=== PATIENT | female | born 1965 | race African-American/Black ===

== ENCOUNTER 2020-03-15 06:16 | Inpatient (IN) | payer OTHER ==
[~2020-03-15] VITALS: Ht 172.7 cm; Wt 67.6 kg
[2020-03-15] VITALS (27 sets, daily range): BP systolic 79–105; BP diastolic 54–82
[~2020-03-15 06:16] MED LIST: ETOMIDATE 2MG/ML 10ML VIAL IV ONE; SODIUM CHLORIDE 0.9% 10ML VIAL ONE; VECURONIUM BROMIDE 10 MG/VIAL IV ONE
[2020-03-15] MEDS ORDERED: IPRATROPIUM BROMIDE (0.02%) 0.5MG/2.5ML NEB HHN STA (06:54)
[2020-03-15] MEDS ORDERED: PROPOFOL 10MG/ML 100ML 100 ML IV STA (06:54)
[2020-03-15] MEDS ORDERED: ALBUTEROL (0.083%) 2.5MG/3ML NEB HHN STA (06:54)
[2020-03-15] MEDS ORDERED: METHYLPREDNISOLONE SOD SUCC 125 MG/2 ML VIAL IV ONE (07:00)
[2020-03-15] MEDS ORDERED: PIPERACILLIN/TAZ 3.375G PREMIX 50 ML IV ONE (07:00)
[2020-03-15] MEDS ORDERED: SODIUM CHLORIDE 0.9% 1000ML BAG (SEPSIS BOLUS) IV ONE (07:00)
[2020-03-15] MEDS ORDERED: VANCOMYCIN 1 G PREMIX 200 ML IV ONE (07:00)
[2020-03-15 07:21] LABS: CLARITY URINE CLOUDY (CLEAR); COLOR URINE YELLOW (YELLOW); KETONES URINE NEGATIVE (NEGATIVE); LEUKOCYTE ESTERASE URINE NEGATIVE (NEGATIVE); NITRITE URINE NEGATIVE (NEGATIVE); OCCULT BLOOD URINE 2+ (NEGATIVE); PROTEIN URINE 4+ (NEGATIVE)
[2020-03-15 07:29] LABS: BG DEOXYHEMOGLOBIN 2.8 % (0.0-5.0); BG FRACTION INSPIRED OXYGEN 100; BG METHEMOGLOBIN 0.3 % (0.0-1.5); BG OXYGEN SATURATION 97.2 % (92.0-98.5); BG OXYHEMOGLOBIN 96.9 % (94.0-97.0); BG PCO2 56.7 mmHg (35.0-45.0); BG PH 7.244 (7.350-7.450); BG PO2 106.3 mmHg (75.0-100.0); BG SAMPLE SITE RIGHT RADIAL; BG TOTAL HEMOGLOBIN 12.4 g/dL (12.0-18.0); BG TOTAL RESPIRATORY RATE 16 b/min; BG VENT MODE VENT - AC
[2020-03-15 08:00] LABS: BASOPHILS % 0.6 % (0.0-2.0); EOSINOPHILS % 2.2 % (0.0-5.0); HEMATOCRIT. 38.5 % (36.0-48.0); HEMOGLOBIN. 11.8 g/dL (12.0-16.0); LYMPHOCYTES % 41.9 % (20.0-50.0); MEAN CORPUSCULAR HEMOGLOBIN 25.9 pg (28.0-32.0); MEAN CORPUSCULAR VOLUME 84.1 fL (81.0-99.0); MEAN PLATELET VOLUME 10.6 fl (7.4-10.4); MONOCYTES % 11.3 % (2.0-8.0); PLATELET 258 x1000/uL (130-400); RED BLOOD CELL COUNT 4.57 mill/uL (4.2-5.4); RED CELL DISTRIBUTION WIDTH 17.6 % (11.6-14.6)
[2020-03-15 08:04] LABS: CHLORIDE 103 mEq/L (98-107)
[2020-03-15 08:10] LABS: INR 1.1; PARTIAL THROMBOPLASTIN TIME 28.5 sec (23.4-31.0); PROTHROMBIN TIME 11.2 sec (9.6-11.0)
[2020-03-15] MEDS: IPRATROPIUM/ALBUTEROL 0.5-3(2.5)MG/3ML NEB HHN SCH ×2 (08:29→20:35)
[2020-03-15] MEDS ORDERED: DEXTROSE 50% WATER 50ML SYRINGE IV PRN (16:00)
[2020-03-15] MEDS ORDERED: MAGNESIUM/ALUMINUM HYDROXIDE/SIMETHICONE 30ML UDC PO PRN (16:00)
[2020-03-15] MEDS ORDERED: IPRATROPIUM/ALBUTEROL 0.5-3(2.5)MG/3ML NEB NEB PRN (16:00)
[2020-03-15] MEDS ORDERED: GUAIFENESIN 200MG/10ML SUGAR FREE UDC PO PRN (16:00)
[2020-03-15] MEDS ORDERED: ACETAMINOPHEN 325MG TABLET PO PRN (16:00)
[2020-03-15] MEDS ORDERED: DOCUSATE SODIUM 100MG CAPSULE PO PRN (16:00)
[2020-03-15] MEDS ORDERED: NA PHOS,M-B/NA PHOS,DI-BA ENEMA 118ML PR PRN (16:00)
[2020-03-15] MEDS ORDERED: CLONIDINE 0.1MG TABLET PO PRN (16:00)
[2020-03-15] MEDS ORDERED: ACETAMINOPHEN 650MG SUPP PR PRN (16:00)
[2020-03-15] MEDS ORDERED: LORAZEPAM 0.5MG TABLET PO PRN (16:00)
[2020-03-15] MEDS ORDERED: DIPHENHYDRAMINE 50MG/ML VIAL IV PRN (16:00)
[2020-03-15] MEDS ORDERED: ONDANSETRON HCL 4MG/2ML INJ IV PRN (16:00)
[2020-03-15] MEDS: PROPOFOL 10MG/ML 100ML 100 ML IV PRN ×3 (16:02→23:08)
[2020-03-15] MEDS: INSULIN LISPRO 100 UNITS/ML SUBCUT SCH ×2 (17:00→21:00)
[2020-03-15 17:03] LABS: BG BASE EXCESS -2.1 mmol/L (-2.0-2.0); BG CARBOXYHEMOGLOBIN 0.3 % (0.5-1.5); BG DEOXYHEMOGLOBIN 1.2 % (0.0-5.0); BG FRACTION INSPIRED OXYGEN 100; BG HCO3 ACT 23.5 mmol/L (22.0-26.0); BG METHEMOGLOBIN 0.5 % (0.0-1.5); BG OXYGEN SATURATION 98.8 % (92.0-98.5); BG PCO2 43.5 mmHg (35.0-45.0); BG PH 7.351 (7.350-7.450); BG SAMPLE SITE RIGHT RADIAL; BG TOTAL HEMOGLOBIN 12.7 g/dL (12.0-18.0); BG TOTAL RESPIRATORY RATE 16 b/min; BG VENT MODE VENT - AC
[2020-03-15] MEDS: BLOOD SUGAR DIAGNOSTIC STRIP TEST SCH ×2 (17:16→20:09)
[2020-03-15] MEDS: DEXT 5%/0.45% NACL KCL 20MEQ/L 1,000 ML IV SCH (17:57)
[2020-03-15] MEDS: PIPERACILLIN/TAZOBACTAM 3.375 G in DEXT 5% WATER 100 ML IV SCH ×2 (17:57→23:05)
[2020-03-15] MEDS: METHYLPREDNISOLONE SOD SUCC 40 MG/ML VIAL IV SCH (17:57)
[2020-03-15] MEDS ORDERED: VANCOMYCIN 750 MG PREMIX 150 ML IV SCH (20:00)
[2020-03-15] MEDS ORDERED: IOHEXOL-350 100 ML BOTTLE ONE (23:05)
[2020-03-16] VITALS (91 sets, daily range): BP systolic 75–182; BP diastolic 5–96
[2020-03-16 00:28] LABS: CREATINE KINASE MB FRACTION 11.5 ng/mL (0.5-3.6)
[2020-03-16] MEDS: METHYLPREDNISOLONE SOD SUCC 40 MG/ML VIAL IV SCH ×4 (00:43→23:39)
[2020-03-16] MEDS: NOREPINEPHRINE 8 MG in DEXT 5% WATER 242 ML IV PRN ×2 (00:44→15:26)
[2020-03-16] MEDS: IPRATROPIUM/ALBUTEROL 0.5-3(2.5)MG/3ML NEB HHN SCH ×4 (01:56→21:08)
[2020-03-16] MEDS: PROPOFOL 10MG/ML 100ML 100 ML IV PRN ×4 (04:37→21:29)
[2020-03-16] MEDS: PIPERACILLIN/TAZOBACTAM 3.375 G in DEXT 5% WATER 100 ML IV SCH ×4 (05:05→23:19)
[2020-03-16 05:48] LABS: HEMATOCRIT. 40.4 % (36.0-48.0); HEMOGLOBIN. 12.8 g/dL (12.0-16.0); MEAN CORPUSCULAR HEMOGLOBIN 25.4 pg (28.0-32.0); MEAN PLATELET VOLUME 10.4 fl (7.4-10.4); PLATELET 250 x1000/uL (130-400); RED BLOOD CELL COUNT 5.05 mill/uL (4.2-5.4); RED CELL DISTRIBUTION WIDTH 17.2 % (11.6-14.6)
[2020-03-16 05:50] LABS: CHLORIDE 105 mEq/L (98-107)
[2020-03-16 06:01] LABS: CREATINE KINASE 204 IU/L (26-192); LDL CHOLESTEROL 63 mg/dL (5-100); T4 FREE 1.53 ng/dL (0.76-1.46)
[2020-03-16 06:02] LABS: HDL CHOLESTEROL 72 mg/dL (40-59)
[2020-03-16 06:09] LABS: CREATINE KINASE MB FRACTION 5.2 ng/mL (0.5-3.6)
[2020-03-16] MEDS: BLOOD SUGAR DIAGNOSTIC STRIP TEST SCH ×4 (06:31→20:29)
[2020-03-16] MEDS: INSULIN LISPRO 100 UNITS/ML SUBCUT SCH ×4 (06:32→20:30)
[2020-03-16] MEDS ORDERED: ASPIRIN 325MG EC TABLET PO SCH (09:00)
[2020-03-16] MEDS: DEXT 5%/0.45% NACL KCL 20MEQ/L 1,000 ML IV SCH ×2 (09:03→20:31)
[2020-03-16] MEDS: FAMOTIDINE 20MG/2ML VIAL IV SCH (09:03)
[2020-03-16] MEDS: VANCOMYCIN 1 G PREMIX 200 ML IV SCH ×2 (10:18→21:28)
[2020-03-16 11:25] LABS: BG BASE EXCESS 1.1 mmol/L (-2.0-2.0); BG CARBOXYHEMOGLOBIN 0.1 % (0.5-1.5); BG DEOXYHEMOGLOBIN 4.3 % (0.0-5.0); BG FRACTION INSPIRED OXYGEN 50; BG HCO3 ACT 25.5 mmol/L (22.0-26.0); BG METHEMOGLOBIN 0.3 % (0.0-1.5); BG OXYGEN SATURATION 95.7 % (92.0-98.5); BG OXYHEMOGLOBIN 95.3 % (94.0-97.0); BG PCO2 39.6 mmHg (35.0-45.0); BG PH 7.426 (7.350-7.450); BG SAMPLE SITE RIGHT RADIAL; BG TOTAL HEMOGLOBIN 13.4 g/dL (12.0-18.0); BG TOTAL RESPIRATORY RATE 16 b/min; BG VENT MODE VENT - AC
[2020-03-16 11:47] LABS: PLATELET ESTIMATE NORMAL
[2020-03-16] MEDS: ENOXAPARIN 60MG/0.6ML SYR SUBCUT SCH ×2 (12:06→20:30)
[2020-03-16] MEDS ORDERED: CLOPIDOGREL 75MG TABLET PO SCH (13:30)
[2020-03-16 21:33] LABS: *AMPHETAMINES SCREEN URINE NEGATIVE (NEGATIVE); *BARBITURATES SCREEN URINE NEGATIVE (NEGATIVE); *BENZODIAZEPINES SCREEN URINE NEGATIVE (NEGATIVE); *COCAINE SCREEN URINE NEGATIVE (NEGATIVE); CANNABINOID URINE SCREEN NEGATIVE (NEGATIVE); METHADONE URINE SCREEN NEGATIVE (NEGATIVE); OPIATES URINE SCREEN PRESUMTIVE POSITIVE (NEGATIVE); PHENCYCLIDINE URINE SCREEN NEGATIVE (NEGATIVE)
[2020-03-16] MEDS ORDERED: LORAZEPAM 2MG/ML CPJ IV PRN (21:45)
[2020-03-17] VITALS (70 sets, daily range): BP systolic 70–147; BP diastolic 26–102
[2020-03-17] MEDS ORDERED: IOHEXOL-300 100 ML BOTTLE ONE (00:38)
[2020-03-17] MEDS: PROPOFOL 10MG/ML 100ML 100 ML IV PRN ×4 (00:50→23:29)
[2020-03-17] MEDS: IPRATROPIUM/ALBUTEROL 0.5-3(2.5)MG/3ML NEB HHN SCH ×5 (02:10→20:33)
[2020-03-17] MEDS: PIPERACILLIN/TAZOBACTAM 3.375 G in DEXT 5% WATER 100 ML IV SCH ×4 (04:09→22:04)
[2020-03-17 05:44] LABS: HEMATOCRIT. 35.8 % (36.0-48.0); HEMOGLOBIN. 11.3 g/dL (12.0-16.0); MEAN CORPUSCULAR VOLUME 79.1 fL (81.0-99.0); MEAN PLATELET VOLUME 10.1 fl (7.4-10.4); PLATELET 219 x1000/uL (130-400); RED BLOOD CELL COUNT 4.53 mill/uL (4.2-5.4); RED CELL DISTRIBUTION WIDTH 17.2 % (11.6-14.6)
[2020-03-17 05:51] LABS: CHLORIDE 111 mEq/L (98-107)
[2020-03-17 07:54] LABS: PLATELET ESTIMATE NORMAL
[2020-03-17 07:58] LABS: BG DEOXYHEMOGLOBIN 1.5 % (0.0-5.0); BG HCO3 ACT 23.2 mmol/L (22.0-26.0); BG METHEMOGLOBIN 0.3 % (0.0-1.5); BG OXYGEN SATURATION 98.5 % (92.0-98.5); BG OXYHEMOGLOBIN 98.2 % (94.0-97.0); BG PCO2 33.5 mmHg (35.0-45.0); BG PH 7.459 (7.350-7.450); BG PO2 124.9 mmHg (75.0-100.0); BG SAMPLE SITE RIGHT RADIAL; BG TOTAL HEMOGLOBIN 12.6 g/dL (12.0-18.0); BG VENT MODE VENT - AC
[2020-03-17] MEDS: INSULIN LISPRO 100 UNITS/ML SUBCUT SCH ×5 (08:20→21:00)
[2020-03-17] MEDS: BLOOD SUGAR DIAGNOSTIC STRIP TEST SCH ×4 (08:28→21:48)
[2020-03-17] MEDS ORDERED: KCL 10MEQ/50ML PREMIX 50 ML IV SCH (09:00)
[2020-03-17] MEDS: DEXT 5%/0.45% NACL KCL 20MEQ/L 1,000 ML IV SCH ×2 (09:00→21:33)
[2020-03-17] MEDS: METHYLPREDNISOLONE SOD SUCC 40 MG/ML VIAL IV SCH ×2 (09:39→21:32)
[2020-03-17] MEDS: CLOPIDOGREL 75MG TABLET PO SCH (09:39)
[2020-03-17] MEDS: FAMOTIDINE 20MG/2ML VIAL IV SCH (09:39)
[2020-03-17] MEDS: ENOXAPARIN 60MG/0.6ML SYR SUBCUT SCH ×2 (09:40→21:33)
[2020-03-17] MEDS: VANCOMYCIN 1 G PREMIX 200 ML IV SCH (09:52)
[2020-03-17] MEDS ORDERED: POTASSIUM CHLORIDE INJ 30 MEQ in DEXT 5% WATER 250 ML IV SCH (10:00)
[2020-03-17 13:21] LABS: BG BASE EXCESS -0.5 mmol/L (-2.0-2.0); BG CARBOXYHEMOGLOBIN 0.3 % (0.5-1.5); BG DEOXYHEMOGLOBIN 6.5 % (0.0-5.0); BG FRACTION INSPIRED OXYGEN 40; BG HCO3 ACT 23.8 mmol/L (22.0-26.0); BG METHEMOGLOBIN 0.4 % (0.0-1.5); BG OXYGEN SATURATION 93.5 % (92.0-98.5); BG OXYHEMOGLOBIN 92.8 % (94.0-97.0); BG PCO2 38.3 mmHg (35.0-45.0); BG PH 7.412 (7.350-7.450); BG SAMPLE SITE RIGHT RADIAL; BG TOTAL HEMOGLOBIN 13.2 g/dL (12.0-18.0); BG VENT MODE VENT - CPAP
[2020-03-17] MEDS ORDERED: LORAZEPAM 2MG/ML CPJ IV PRN (17:45)
[2020-03-17] MEDS ORDERED: PROPOFOL 10MG/ML 100ML 100 ML IV PRN (18:07)
[2020-03-17] MEDS: VANCOMYCIN 750 MG PREMIX 150 ML IV SCH (18:55)
[2020-03-18] VITALS (94 sets, daily range): BP systolic 107–187; BP diastolic 27–104
[2020-03-18] MEDS: VANCOMYCIN 750 MG PREMIX 150 ML IV SCH ×3 (02:24→17:58)
[2020-03-18] MEDS: IPRATROPIUM/ALBUTEROL 0.5-3(2.5)MG/3ML NEB HHN SCH ×4 (02:37→20:33)
[2020-03-18] MEDS: ACETYLCYSTEINE 100MG/ML 10% VIAL 4ML INH SCH ×3 (02:37→14:22)
[2020-03-18] MEDS: PIPERACILLIN/TAZOBACTAM 3.375 G in DEXT 5% WATER 100 ML IV SCH ×4 (06:16→23:49)
[2020-03-18 06:50] LABS: HEMATOCRIT 34.3 % (36.0-48.0); MEAN CORPUSCULAR HEMOGLOBIN 25.1 pg (28.0-32.0); MEAN CORPUSCULAR VOLUME 78.3 fL (81.0-99.0); PLATELET 179 x1000/uL (130-400); RED BLOOD CELL COUNT 4.38 mill/uL (4.2-5.4); RED CELL DISTRIBUTION WIDTH 17.9 % (11.6-14.6)
[2020-03-18 07:04] LABS: CHLORIDE 114 mEq/L (98-107)
[2020-03-18] MEDS: PROPOFOL 10MG/ML 100ML 100 ML IV PRN (07:08)
[2020-03-18 07:12] LABS: TOTAL IRON BINDING CAPACITY 236 ug/dL (250-450)
[2020-03-18 07:26] LABS: VITAMIN B12 SERUM 962 pg/mL (211-911)
[2020-03-18] MEDS: BLOOD SUGAR DIAGNOSTIC STRIP TEST SCH ×4 (07:50→21:00)
[2020-03-18] MEDS: INSULIN LISPRO 100 UNITS/ML SUBCUT SCH ×4 (08:20→21:00)
[2020-03-18] MEDS: FAMOTIDINE 20MG/2ML VIAL IV SCH (08:51)
[2020-03-18] MEDS: METHYLPREDNISOLONE SOD SUCC 40 MG/ML VIAL IV SCH ×2 (08:51→21:56)
[2020-03-18] MEDS: CLOPIDOGREL 75MG TABLET PO SCH (08:51)
[2020-03-18] MEDS: ENOXAPARIN 60MG/0.6ML SYR SUBCUT SCH ×3 (08:52→21:56)
[2020-03-18] MEDS ORDERED: POTASSIUM CHLORIDE 20MEQ TABLET SR PO SCH (10:15)
[2020-03-18 10:34] LABS: BG BASE EXCESS -0.5 mmol/L (-2.0-2.0); BG CARBOXYHEMOGLOBIN 0.3 % (0.5-1.5); BG FRACTION INSPIRED OXYGEN 40; BG HCO3 ACT 24.2 mmol/L (22.0-26.0); BG METHEMOGLOBIN 0.4 % (0.0-1.5); BG OXYHEMOGLOBIN 98.3 % (94.0-97.0); BG PO2 199.5 mmHg (75.0-100.0); BG SAMPLE SITE RIGHT RADIAL; BG TOTAL HEMOGLOBIN 12.3 g/dL (12.0-18.0); BG VENT MODE VENT - CPAP
[2020-03-18] MEDS: FERROUS SULFATE 325MG TABLET PO SCH (11:50)
[2020-03-18] MEDS: DEXT 5%/0.45% NACL KCL 20MEQ/L 1,000 ML IV SCH (17:57)
[2020-03-18] MEDS: HYDROCODONE/ACETAMINOPHEN 5/325MG TABLET PO PRN (18:19)
[2020-03-19] VITALS (44 sets, daily range): BP systolic 93–139; BP diastolic 24–108
[2020-03-19] MEDS: ACETYLCYSTEINE 100MG/ML 10% VIAL 4ML INH SCH ×3 (02:01→14:12)
[2020-03-19] MEDS: IPRATROPIUM/ALBUTEROL 0.5-3(2.5)MG/3ML NEB HHN SCH ×4 (02:01→21:06)
[2020-03-19] MEDS: VANCOMYCIN 750 MG PREMIX 150 ML IV SCH ×4 (05:09→21:05)
[2020-03-19] MEDS: PIPERACILLIN/TAZOBACTAM 3.375 G in DEXT 5% WATER 100 ML IV SCH ×3 (05:09→16:55)
[2020-03-19] MEDS: DEXT 5%/0.45% NACL KCL 20MEQ/L 1,000 ML IV SCH ×2 (05:10→15:26)
[2020-03-19 06:04] LABS: HEMATOCRIT. 32.5 % (36.0-48.0); HEMOGLOBIN. 10.4 g/dL (12.0-16.0); MEAN CORPUSCULAR HEMOGLOBIN 25.5 pg (28.0-32.0); MEAN CORPUSCULAR VOLUME 79.4 fL (81.0-99.0); MEAN PLATELET VOLUME 10.2 fl (7.4-10.4); PLATELET 152 x1000/uL (130-400); RED BLOOD CELL COUNT 4.09 mill/uL (4.2-5.4); RED CELL DISTRIBUTION WIDTH 17.4 % (11.6-14.6)
[2020-03-19 06:18] LABS: CHLORIDE 111 mEq/L (98-107)
[2020-03-19] MEDS: BLOOD SUGAR DIAGNOSTIC STRIP TEST SCH ×4 (07:17→21:26)
[2020-03-19] MEDS: INSULIN LISPRO 100 UNITS/ML SUBCUT SCH ×4 (08:20→21:00)
[2020-03-19] MEDS: METHYLPREDNISOLONE SOD SUCC 40 MG/ML VIAL IV SCH ×2 (09:33→21:05)
[2020-03-19] MEDS: FAMOTIDINE 20MG/2ML VIAL IV SCH (09:33)
[2020-03-19] MEDS: CLOPIDOGREL 75MG TABLET PO SCH (09:34)
[2020-03-19] MEDS: FERROUS SULFATE 325MG TABLET PO SCH (09:34)
[2020-03-19] MEDS: ENOXAPARIN 60MG/0.6ML SYR SUBCUT SCH (09:34)
[2020-03-19] MEDS: HYDROCODONE/ACETAMINOPHEN 5/325MG TABLET PO PRN ×3 (11:29→21:06)
[2020-03-19 11:47] LABS: PLATELET ESTIMATE NORMAL
[2020-03-19] MEDS: ENOXAPARIN 80MG/0.8ML SYR SUBCUT SCH (21:05)
[2020-03-20] VITALS (27 sets, daily range): BP systolic 91–140; BP diastolic 51–88
[2020-03-20] MEDS: HYDROCODONE/ACETAMINOPHEN 5/325MG TABLET PO PRN ×4 (01:40→19:26)
[2020-03-20] MEDS: ACETYLCYSTEINE 100MG/ML 10% VIAL 4ML INH SCH ×2 (02:10→08:42)
[2020-03-20] MEDS: IPRATROPIUM/ALBUTEROL 0.5-3(2.5)MG/3ML NEB HHN SCH ×4 (02:10→20:16)
[2020-03-20] MEDS: DEXT 5%/0.45% NACL KCL 20MEQ/L 1,000 ML IV SCH (03:40)
[2020-03-20] MEDS: VANCOMYCIN 750 MG PREMIX 150 ML IV SCH (05:52)
[2020-03-20 05:56] LABS: HEMATOCRIT. 30.1 % (36.0-48.0); HEMOGLOBIN. 9.7 g/dL (12.0-16.0); MEAN CORPUSCULAR HEMOGLOBIN 25.7 pg (28.0-32.0); MEAN CORPUSCULAR VOLUME 79.7 fL (81.0-99.0); MEAN PLATELET VOLUME 10.5 fl (7.4-10.4); PLATELET 150 x1000/uL (130-400); RED BLOOD CELL COUNT 3.77 mill/uL (4.2-5.4); RED CELL DISTRIBUTION WIDTH 17.2 % (11.6-14.6)
[2020-03-20 06:47] LABS: CHLORIDE 111 mEq/L (98-107)
[2020-03-20 06:58] LABS: VANCOMYCIN TROUGH 19.4 ug/mL (5.0-10.0)
[2020-03-20] MEDS: BLOOD SUGAR DIAGNOSTIC STRIP TEST SCH ×3 (07:08→17:04)
[2020-03-20] MEDS: INSULIN LISPRO 100 UNITS/ML SUBCUT SCH ×3 (08:20→17:04)
[2020-03-20] MEDS: CLOPIDOGREL 75MG TABLET PO SCH (09:11)
[2020-03-20] MEDS: FAMOTIDINE 20MG/2ML VIAL IV SCH (09:11)
[2020-03-20] MEDS: ENOXAPARIN 80MG/0.8ML SYR SUBCUT SCH ×2 (09:11→20:22)
[2020-03-20] MEDS: FERROUS SULFATE 325MG TABLET PO SCH (09:11)
[2020-03-20] MEDS: METHYLPREDNISOLONE SOD SUCC 40 MG/ML VIAL IV SCH ×2 (09:11→20:21)
[2020-03-20 11:27] LABS: PLATELET ESTIMATE NORMAL
[2020-03-20] MEDS ORDERED: VANCOMYCIN 1 G PREMIX 200 ML IV SCH (18:00)
[2020-03-21] VITALS: BP 139/67
[2020-03-21] MEDS: HYDROCODONE/ACETAMINOPHEN 5/325MG TABLET PO PRN ×4 (01:00→19:39)
[2020-03-21] MEDS: IPRATROPIUM/ALBUTEROL 0.5-3(2.5)MG/3ML NEB HHN SCH ×4 (01:17→21:08)
[2020-03-21] MEDS: ACETYLCYSTEINE 100MG/ML 10% VIAL 4ML INH SCH ×3 (01:17→13:17)
[2020-03-21 04:00] VITALS: BP 119/66
[2020-03-21] MEDS: VANCOMYCIN 1 G PREMIX 200 ML IV SCH ×2 (05:04→19:24)
[2020-03-21 08:00] VITALS: BP 141/68
[2020-03-21] MEDS: CLOPIDOGREL 75MG TABLET PO SCH (09:28)
[2020-03-21] MEDS: ENOXAPARIN 80MG/0.8ML SYR SUBCUT SCH ×2 (09:28→21:00)
[2020-03-21] MEDS: FERROUS SULFATE 325MG TABLET PO SCH (09:29)
[2020-03-21] MEDS: FAMOTIDINE 20MG/2ML VIAL IV SCH (09:29)
[2020-03-21] MEDS: METHYLPREDNISOLONE SOD SUCC 40 MG/ML VIAL IV SCH ×2 (09:30→21:00)
[2020-03-21 12:00] VITALS: BP 125/65
[2020-03-21 16:00] VITALS: BP 126/80
[2020-03-21 18:40] LABS: BG CARBOXYHEMOGLOBIN 0.3 % (0.5-1.5); BG DEOXYHEMOGLOBIN 3.6 % (0.0-5.0); BG FRACTION INSPIRED OXYGEN 21; BG HCO3 ACT 24.3 mmol/L (22.0-26.0); BG METHEMOGLOBIN 0.3 % (0.0-1.5); BG OXYGEN SATURATION 96.4 % (92.0-98.5); BG OXYHEMOGLOBIN 95.8 % (94.0-97.0); BG PCO2 38.2 mmHg (35.0-45.0); BG PH 7.421 (7.350-7.450); BG PO2 82.5 mmHg (75.0-100.0); BG SAMPLE SITE LEFT RADIAL; BG TOTAL HEMOGLOBIN 11.5 g/dL (12.0-18.0); BG VENT MODE ROOM AIR
[2020-03-21 20:00] VITALS: BP 136/73
[2020-03-22] VITALS: BP 130/70
[2020-03-22] MEDS: IPRATROPIUM/ALBUTEROL 0.5-3(2.5)MG/3ML NEB HHN SCH ×4 (01:45→20:37)
[2020-03-22] MEDS: ACETYLCYSTEINE 100MG/ML 10% VIAL 4ML INH SCH ×3 (01:46→14:44)
[2020-03-22] MEDS: HYDROCODONE/ACETAMINOPHEN 5/325MG TABLET PO PRN ×5 (02:11→22:31)
[2020-03-22 04:00] VITALS: BP 120/70
[2020-03-22 04:51] LABS: CHLORIDE 109 mEq/L (98-107)
[2020-03-22 04:59] LABS: VANCOMYCIN TROUGH 27.1 ug/mL (5.0-10.0)
[2020-03-22] MEDS: VANCOMYCIN 1 G PREMIX 200 ML IV SCH (05:42)
[2020-03-22 08:00] VITALS: BP 140/73
[2020-03-22] MEDS: METHYLPREDNISOLONE SOD SUCC 40 MG/ML VIAL IV SCH (09:29)
[2020-03-22] MEDS: CLOPIDOGREL 75MG TABLET PO SCH (09:29)
[2020-03-22] MEDS: FERROUS SULFATE 325MG TABLET PO SCH (09:29)
[2020-03-22] MEDS: FAMOTIDINE 20MG/2ML VIAL IV SCH (09:29)
[2020-03-22] MEDS: ENOXAPARIN 80MG/0.8ML SYR SUBCUT SCH (09:46)
[2020-03-22 12:00] VITALS: BP 110/78
[2020-03-22] MEDS ORDERED: REGADENOSON 0.4 MG/5 ML IV ONE (13:45)
[2020-03-22] MEDS ORDERED: ASPIRIN 81MG EC TABLET PO SCH (14:00)
[2020-03-22 16:00] VITALS: BP 157/67
[2020-03-22 19:53] VITALS: BP 120/64
[2020-03-22] MEDS ORDERED: VANCOMYCIN 1 G PREMIX 200 ML IV SCH (23:00)
[2020-03-23] VITALS (7 sets, daily range): BP systolic 106–149; BP diastolic 61–80
[2020-03-23] MEDS ORDERED: DEXT 5%/0.45% NACL 1000ML 1,000 ML IV SCH
[2020-03-23] MEDS: IPRATROPIUM/ALBUTEROL 0.5-3(2.5)MG/3ML NEB HHN SCH ×2 (01:22→15:38)
[2020-03-23] MEDS: ACETYLCYSTEINE 100MG/ML 10% VIAL 4ML INH SCH (01:22)
[2020-03-23] MEDS: HYDROCODONE/ACETAMINOPHEN 5/325MG TABLET PO PRN ×4 (02:31→17:59)
[2020-03-23 06:43] LABS: HEMATOCRIT 28.2 % (36.0-48.0); HEMOGLOBIN 9.1 g/dL (12.0-16.0); MEAN CORPUSCULAR HEMOGLOBIN 25.6 pg (28.0-32.0); PLATELET 170 x1000/uL (130-400); RED BLOOD CELL COUNT 3.56 mill/uL (4.2-5.4); RED CELL DISTRIBUTION WIDTH 16.8 % (11.6-14.6)
[2020-03-23] MEDS: FERROUS SULFATE 325MG TABLET PO SCH (08:07)
[2020-03-23] MEDS ORDERED: METHYLPREDNISOLONE SOD SUCC 40 MG/ML VIAL IV SCH (09:00)
[2020-03-23] MEDS: FAMOTIDINE 20MG/2ML VIAL IV SCH (09:51)
[2020-03-23] MEDS ORDERED: LEVO500T2 PO (10:45)
[2020-03-23] MEDS ORDERED: IPRA3AMP9 NEB (10:45)
[2020-03-23] MEDS ORDERED: P20 PO (10:45)
[2020-03-23] MEDS ORDERED: ASPI-1497 MT (10:45)
[2020-03-23] MEDS ORDERED: FERR-71 MT (10:45)
[2020-03-23] MEDS ORDERED: POTASSIUM CHLORIDE INJ 40 MEQ in DEXT 5% WATER 250 ML IV NR (12:00)
== END 2020-03-23 22:54 | disposition home or self-care (01) | DRG 871 ==
LOC: ER 06:16 → MICUSO 08:33 → ENRESERV 14:47 → CVICU 03-16 17:00 → 8WST 03-20 20:47
PROVIDERS: ADMIT Internal Medicine; ATTEND Internal Medicine
PROC: 5A1945Z Respiratory Ventilation, 24-96 Consecutive Hours (ICD-10-PCS; principal; 2020-03-15)
DX: A41.9 Sepsis, unspecified organism (principal); J96.01 Acute respiratory failure with hypoxia; J18.9 Pneumonia, unspecified organism; I21.4 Non-ST elevation (NSTEMI) myocardial infarction; E43 Unspecified severe protein-calorie malnutrition; N39.0 Urinary tract infection, site not specified; J44.1 Chronic obstructive pulmonary disease with (acute) exacerbation; J45.901 Unspecified asthma with (acute) exacerbation; J44.0 Chronic obstructive pulmonary disease with (acute) lower respiratory infection; G93.40 Encephalopathy, unspecified; E87.6 Hypokalemia; G90.8 Other disorders of autonomic nervous system; R73.9 Hyperglycemia, unspecified; M48.02 Spinal stenosis, cervical region; Z20.828 Contact with and (suspected) exposure to other viral communicable diseases; Z53.20 Procedure and treatment not carried out because of patient's decision for unspecified reasons; Z85.118 Personal history of other malignant neoplasm of bronchus and lung; Z78.1 Physical restraint status; Z85.21 Personal history of malignant neoplasm of larynx; Z85.819 Personal history of malignant neoplasm of unspecified site of lip, oral cavity, and pharynx; Z88.6 Allergy status to analgesic agent; Z92.21 Personal history of antineoplastic chemotherapy; Z92.3 Personal history of irradiation; Z68.27 Body mass index [BMI] 27.0-27.9, adult
CPT/HCPCS: 36415; 36600; 70491; 71045; 71275; 80048; 80053; 80061; 80202; 80305; 81003; 82375; 82550; 82553; 82607; 82805; 82962; 83036; 83540; 83550; 83605; 83735; 83880; 84145; 84439; 84443; 84478; 84484; 85025; 85027; 85044; 85379; 86141; 86850; 86900; 87070; 87449; 92610; 93005; 93306; 93970; 94003; 94640; 97116; 97162; 97535; 99291; J1200; J1650; J1815; J2060; J2543; J2704; J2920; J2930; J3370; J3480; J3490; J7030; J7060; J7608; Q9967; U0003-CS

== ENCOUNTER 2020-08-27 12:50 | Inpatient (IN) | payer OTHER ==
[~2020-08-27] VITALS: Ht 165.1 cm; Wt 67.6 kg
[~2020-08-27 12:50] MED LIST changes: +ASPI-1497 MT; -ETOMIDATE 2MG/ML 10ML VIAL IV ONE; +FERR-71 MT; +IPRA3AMP9 NEB; +LEVO500T2 PO; +P20 PO; -SODIUM CHLORIDE 0.9% 10ML VIAL ONE; -VECURONIUM BROMIDE 10 MG/VIAL IV ONE
[2020-08-27 13:25] LABS: BG CARBOXYHEMOGLOBIN 0.1 % (0.5-1.5); BG DEOXYHEMOGLOBIN 0.8 % (0.0-5.0); BG FRACTION INSPIRED OXYGEN 100; BG HCO3 ACT 52.9 mmol/L (22.0-26.0); BG METHEMOGLOBIN 0.2 % (0.0-1.5); BG OXYGEN SATURATION 99.2 % (92.0-98.5); BG OXYHEMOGLOBIN 98.9 % (94.0-97.0); BG PCO2 148.1 mmHg (35.0-45.0); BG PH 7.171 (7.350-7.450); BG PO2 217.7 mmHg (75.0-100.0); BG SAMPLE SITE RIGHT RADIAL; BG TOTAL HEMOGLOBIN 13.2 g/dL (12.0-18.0); BG VENT MODE MASK - NRB
[2020-08-27] MEDS ORDERED: SUCCINYLCHOLINE CHLORIDE 200MG/10ML IV ONE (13:45)
[2020-08-27] MEDS ORDERED: ETOMIDATE 2MG/ML 10ML VIAL IV ONE (13:45)
[2020-08-27 14:01] LABS: HEMATOCRIT. 37.6 % (36.0-48.0); HEMOGLOBIN. 12.2 g/dL (12.0-16.0); MEAN CORPUSCULAR HEMOGLOBIN 27.5 pg (28.0-32.0); MEAN PLATELET VOLUME 7.5 fl (7.4-10.4); PLATELET 342 x1000/uL (130-400); RED BLOOD CELL COUNT 4.43 mill/uL (4.2-5.4); RED CELL DISTRIBUTION WIDTH 15.8 % (11.6-14.6)
[2020-08-27 14:03] LABS: CHLORIDE 83 mEq/L (98-107)
[2020-08-27] MEDS ORDERED: PROPOFOL 10MG/ML 100ML 100 ML IV SCH (14:15)
[2020-08-27] MEDS ORDERED: MIDAZOLAM 100MG/100ML PMX 100 ML IV PRN (14:30)
[2020-08-27] MEDS ORDERED: FENTANYL CITRATE/PF 2,500 MCG in SODIUM CHLORIDE 0.9% 200 ML IV PRN (14:30)
[2020-08-27] MEDS ORDERED: MIDAZOLAM HCL 2 MG/2 ML VIAL IV ONE (14:30)
[2020-08-27] MEDS ORDERED: SODIUM CHLORIDE 0.9% 1,000 ML IV ONE ×2 (14:30)
[2020-08-27 14:37] LABS: PLATELET ESTIMATE NORMAL
[2020-08-27] MEDS: FENTANYL CITRATE/PF 2,500 MCG in SODIUM CHLORIDE 0.9% 200 ML IV PRN ×2 (15:25→17:44)
[2020-08-27] MEDS: MIDAZOLAM HCL 100 MG in SODIUM CHLORIDE 0.9% 100 ML IV PRN ×2 (15:26→17:43)
[2020-08-27] MEDS ORDERED: PIPERACILLIN/TAZ 3.375G PREMIX 50 ML IV ONE (15:45)
[2020-08-27] MEDS ORDERED: VANCOMYCIN 1 G PREMIX 200 ML IV ONE (15:45)
[2020-08-27 16:37] LABS: BG BASE EXCESS 12.6 mmol/L (-2.0-2.0); BG CARBOXYHEMOGLOBIN 0.3 % (0.5-1.5); BG DEOXYHEMOGLOBIN 9.5 % (0.0-5.0); BG FRACTION INSPIRED OXYGEN 50; BG HCO3 ACT 34.1 mmol/L (22.0-26.0); BG METHEMOGLOBIN 0.3 % (0.0-1.5); BG OXYGEN SATURATION 90.4 % (92.0-98.5); BG OXYHEMOGLOBIN 89.9 % (94.0-97.0); BG PCO2 32.8 mmHg (35.0-45.0); BG PH 7.635 (7.350-7.450); BG PO2 43.6 mmHg (75.0-100.0); BG SAMPLE SITE RIGHT RADIAL; BG TOTAL HEMOGLOBIN 11.4 g/dL (12.0-18.0); BG VENT MODE VENT - AC
[2020-08-27 19:16] LABS: BG BASE EXCESS 12.1 mmol/L (-2.0-2.0); BG CARBOXYHEMOGLOBIN 0.3 % (0.5-1.5); BG DEOXYHEMOGLOBIN 1.8 % (0.0-5.0); BG FRACTION INSPIRED OXYGEN 100; BG HCO3 ACT 33.4 mmol/L (22.0-26.0); BG METHEMOGLOBIN 0.3 % (0.0-1.5); BG OXYGEN SATURATION 98.2 % (92.0-98.5); BG OXYHEMOGLOBIN 97.6 % (94.0-97.0); BG PCO2 31.7 mmHg (35.0-45.0); BG PH 7.641 (7.350-7.450); BG PO2 95.7 mmHg (75.0-100.0); BG SAMPLE SITE RIGHT RADIAL; BG TOTAL HEMOGLOBIN 11.6 g/dL (12.0-18.0); BG TOTAL RESPIRATORY RATE 26 b/min; BG VENT MODE VENT - AC
[2020-08-27] MEDS ORDERED: SODIUM CHLORIDE 0.9% 500 ML IV NR (20:44)
[2020-08-27] MEDS: NOREPINEPHRINE 8 MG in DEXTROSE 5% WATER 250 ML IV PRN (21:36)
[2020-08-27] MEDS ORDERED: VANCOMYCIN 1 G PREMIX 200 ML IV NR (22:15)
[2020-08-27] MEDS ORDERED: PIPERACILLIN/TAZ 3.375G PREMIX 50 ML IV NR (22:15)
[2020-08-28] VITALS (93 sets, daily range): BP systolic 102–166; BP diastolic 56–115
[2020-08-28] MEDS ORDERED: SODIUM CHLORIDE 3% 500ML IV SOLN IV ONE (01:30)
[2020-08-28] MEDS: METHYLPREDNISOLONE SOD SUCC 40 MG/ML VIAL IV SCH ×2 (02:00→13:46)
[2020-08-28] MEDS ORDERED: SODIUM CHLORIDE 3% 400 ML IV ONE (03:00)
[2020-08-28] MEDS: ALBUTEROL (0.083%) 2.5MG/3ML NEB HHN STA (05:06)
[2020-08-28] MEDS: ALBUTEROL (0.083%) 2.5MG/3ML NEB HHN SCH ×5 (05:08→20:15)
[2020-08-28 05:46] LABS: HEMOGLOBIN. 11.8 g/dL (12.0-16.0); MEAN CORPUSCULAR HEMOGLOBIN 27.2 pg (28.0-32.0); MEAN CORPUSCULAR VOLUME 82.7 fL (81.0-99.0); MEAN PLATELET VOLUME 7.4 fl (7.4-10.4); PLATELET 345 x1000/uL (130-400); RED BLOOD CELL COUNT 4.35 mill/uL (4.2-5.4); RED CELL DISTRIBUTION WIDTH 15.7 % (11.6-14.6)
[2020-08-28 05:51] LABS: CHLORIDE 97 mEq/L (98-107)
[2020-08-28] MEDS ORDERED: MIDAZOLAM 100MG/100ML PMX 100 ML IV PRN (07:30)
[2020-08-28] MEDS ORDERED: FENTANYL CITRATE/PF 1,000 MCG in SODIUM CHLORIDE 0.9% 80 ML IV PRN (07:30)
[2020-08-28 08:34] LABS: BG BASE EXCESS 9.9 mmol/L (-2.0-2.0); BG CARBOXYHEMOGLOBIN 0.3 % (0.5-1.5); BG DEOXYHEMOGLOBIN 0.4 % (0.0-5.0); BG FRACTION INSPIRED OXYGEN 100; BG HCO3 ACT 31.8 mmol/L (22.0-26.0); BG METHEMOGLOBIN 0.3 % (0.0-1.5); BG OXYGEN SATURATION 99.6 % (92.0-98.5); BG PCO2 33.4 mmHg (35.0-45.0); BG PH 7.597 (7.350-7.450); BG PO2 367.9 mmHg (75.0-100.0); BG SAMPLE SITE LEFT RADIAL; BG TOTAL HEMOGLOBIN 12.1 g/dL (12.0-18.0); BG TOTAL RESPIRATORY RATE 16 b/min; BG VENT MODE VENT - AC
[2020-08-28] MEDS ORDERED: ONDANSETRON HCL 4MG/2ML INJ IV PRN (08:45)
[2020-08-28] MEDS ORDERED: ACETAMINOPHEN 325MG TABLET PO PRN (08:45)
[2020-08-28] MEDS: POTASSIUM CHLORIDE 20MEQ TABLET SR PO SCH ×2 (09:00→09:55)
[2020-08-28 09:48] LABS: PLATELET ESTIMATE NORMAL
[2020-08-28] MEDS: PIPERACILLIN/TAZOBACTAM 3.375 G in DEXT 5% WATER 100 ML IV SCH ×3 (09:54→21:32)
[2020-08-28] MEDS: PANTOPRAZOLE SODIUM 40 MG/VIAL IV SCH (09:54)
[2020-08-28] MEDS: SODIUM CHLORIDE 0.9% 1,000 ML IV SCH ×2 (09:55→13:47)
[2020-08-28] MEDS: MIDAZOLAM HCL 100 MG in SODIUM CHLORIDE 0.9% 100 ML IV PRN (10:19)
[2020-08-28] MEDS ORDERED: POTASSIUM CHLORIDE INJ 40 MEQ in DEXT 5% WATER 500 ML IV SCH (12:00)
[2020-08-28] MEDS: ACETYLCYSTEINE 100MG/ML 10% VIAL 4ML INH SCH (20:16)
[2020-08-28] MEDS: FENTANYL CITRATE 2,500 MCG in SODIUM CHLORIDE 0.9% 200 ML IV PRN (21:13)
[2020-08-28 23:04] LABS: CLARITY URINE CLEAR (CLEAR); COLOR URINE YELLOW (YELLOW); KETONES URINE NEGATIVE (NEGATIVE); LEUKOCYTE ESTERASE URINE NEGATIVE (NEGATIVE); NITRITE URINE NEGATIVE (NEGATIVE); OCCULT BLOOD URINE TRACE (NEGATIVE); PH URINE 8.5 (4.5-8.0); PROTEIN URINE NEGATIVE (NEGATIVE); SPECIFIC GRAVITY URINE 1.005 (1.005-1.030); UROBILINOGEN URINE 0.2 E.U./dL (0.2-1.0)
[2020-08-28 23:20] LABS: *AMPHETAMINES SCREEN URINE NEGATIVE (NEGATIVE); *BARBITURATES SCREEN URINE NEGATIVE (NEGATIVE); *BENZODIAZEPINES SCREEN URINE PRESUMTIVE POSITIVE (NEGATIVE); *COCAINE SCREEN URINE NEGATIVE (NEGATIVE); METHADONE URINE SCREEN NEGATIVE (NEGATIVE)
[2020-08-28 23:21] LABS: CANNABINOID URINE SCREEN NEGATIVE (NEGATIVE); OPIATES URINE SCREEN NEGATIVE (NEGATIVE); PHENCYCLIDINE URINE SCREEN NEGATIVE (NEGATIVE)
[2020-08-29] VITALS (94 sets, daily range): BP systolic 84–125; BP diastolic 55–90
[2020-08-29] MEDS: ACETYLCYSTEINE 100MG/ML 10% VIAL 4ML INH SCH ×6 (00:22→20:31)
[2020-08-29] MEDS: ALBUTEROL (0.083%) 2.5MG/3ML NEB HHN SCH ×6 (00:22→20:32)
[2020-08-29] MEDS: NOREPINEPHRINE 8 MG in DEXTROSE 5% WATER 250 ML IV PRN (02:04)
[2020-08-29] MEDS: SODIUM CHLORIDE 0.9% 1,000 ML IV SCH ×3 (02:10→17:12)
[2020-08-29] MEDS: METHYLPREDNISOLONE SOD SUCC 40 MG/ML VIAL IV SCH ×2 (02:10→13:41)
[2020-08-29] MEDS: PIPERACILLIN/TAZOBACTAM 3.375 G in DEXT 5% WATER 100 ML IV SCH ×4 (04:59→20:30)
[2020-08-29 06:06] LABS: HEMATOCRIT. 31.1 % (36.0-48.0); HEMOGLOBIN. 10.1 g/dL (12.0-16.0); MEAN CORPUSCULAR HEMOGLOBIN 27.2 pg (28.0-32.0); MEAN CORPUSCULAR VOLUME 83.9 fL (81.0-99.0); MEAN PLATELET VOLUME 7.7 fl (7.4-10.4); PLATELET 318 x1000/uL (130-400); RED BLOOD CELL COUNT 3.71 mill/uL (4.2-5.4); RED CELL DISTRIBUTION WIDTH 16.1 % (11.6-14.6)
[2020-08-29 06:36] LABS: CHLORIDE 102 mEq/L (98-107)
[2020-08-29 07:51] LABS: PLATELET ESTIMATE NORMAL
[2020-08-29 09:21] LABS: BG BASE EXCESS 5.9 mmol/L (-2.0-2.0); BG CARBOXYHEMOGLOBIN 0.2 % (0.5-1.5); BG DEOXYHEMOGLOBIN 1.6 % (0.0-5.0); BG FRACTION INSPIRED OXYGEN 50; BG HCO3 ACT 30.6 mmol/L (22.0-26.0); BG METHEMOGLOBIN 0.3 % (0.0-1.5); BG OXYGEN SATURATION 98.4 % (92.0-98.5); BG OXYHEMOGLOBIN 97.9 % (94.0-97.0); BG PCO2 45.2 mmHg (35.0-45.0); BG PH 7.448 (7.350-7.450); BG PO2 128.9 mmHg (75.0-100.0); BG SAMPLE SITE RIGHT RADIAL; BG TOTAL HEMOGLOBIN 10.2 g/dL (12.0-18.0); BG TOTAL RESPIRATORY RATE 13 b/min; BG VENT MODE VENT - AC
[2020-08-29] MEDS: PANTOPRAZOLE SODIUM 40 MG/VIAL IV SCH ×2 (09:23→20:30)
[2020-08-29] MEDS: MIDAZOLAM HCL 100 MG in SODIUM CHLORIDE 0.9% 100 ML IV PRN (12:02)
[2020-08-29] MEDS: FENTANYL CITRATE 2,500 MCG in SODIUM CHLORIDE 0.9% 200 ML IV PRN (13:41)
[2020-08-30] VITALS (94 sets, daily range): BP systolic 87–172; BP diastolic 38–98
[2020-08-30] MEDS: ACETYLCYSTEINE 100MG/ML 10% VIAL 4ML INH SCH ×6 (00:27→20:20)
[2020-08-30] MEDS: ALBUTEROL (0.083%) 2.5MG/3ML NEB HHN SCH ×5 (00:28→20:20)
[2020-08-30] MEDS: METHYLPREDNISOLONE SOD SUCC 40 MG/ML VIAL IV SCH ×2 (01:01→17:55)
[2020-08-30] MEDS: SODIUM CHLORIDE 0.9% 1,000 ML IV SCH ×2 (01:02→09:22)
[2020-08-30] MEDS: PIPERACILLIN/TAZOBACTAM 3.375 G in DEXT 5% WATER 100 ML IV SCH ×4 (04:00→22:13)
[2020-08-30] MEDS: MIDAZOLAM HCL 100 MG in SODIUM CHLORIDE 0.9% 100 ML IV PRN ×2 (05:13→22:13)
[2020-08-30] MEDS: FENTANYL CITRATE 2,500 MCG in SODIUM CHLORIDE 0.9% 200 ML IV PRN ×2 (05:14→23:11)
[2020-08-30 05:55] LABS: HEMATOCRIT. 32.7 % (36.0-48.0); HEMOGLOBIN. 10.4 g/dL (12.0-16.0); MEAN CORPUSCULAR HEMOGLOBIN 27.4 pg (28.0-32.0); MEAN CORPUSCULAR VOLUME 86.5 fL (81.0-99.0); MEAN PLATELET VOLUME 7.8 fl (7.4-10.4); PLATELET 310 x1000/uL (130-400); RED BLOOD CELL COUNT 3.79 mill/uL (4.2-5.4); RED CELL DISTRIBUTION WIDTH 17.1 % (11.6-14.6)
[2020-08-30 06:14] LABS: CHLORIDE 106 mEq/L (98-107)
[2020-08-30 06:26] LABS: PARTIAL THROMBOPLASTIN TIME 23.9 sec (23.4-31.0); PROTHROMBIN TIME 10.7 sec (9.6-11.0)
[2020-08-30 08:03] LABS: BG BASE EXCESS 2.8 mmol/L (-2.0-2.0); BG CARBOXYHEMOGLOBIN 0.3 % (0.5-1.5); BG DEOXYHEMOGLOBIN 1.3 % (0.0-5.0); BG FRACTION INSPIRED OXYGEN 50; BG HCO3 ACT 28.6 mmol/L (22.0-26.0); BG METHEMOGLOBIN 0.3 % (0.0-1.5); BG OXYGEN SATURATION 98.7 % (92.0-98.5); BG OXYHEMOGLOBIN 98.1 % (94.0-97.0); BG PCO2 50.1 mmHg (35.0-45.0); BG PH 7.375 (7.350-7.450); BG PO2 156.4 mmHg (75.0-100.0); BG SAMPLE SITE RIGHT RADIAL; BG TOTAL HEMOGLOBIN 9.8 g/dL (12.0-18.0); BG TOTAL RESPIRATORY RATE 13 b/min; BG VENT MODE VENT - AC
[2020-08-30] MEDS: ALBUTEROL (0.083%) 2.5MG/3ML NEB HHN STA (08:09)
[2020-08-30 08:20] LABS: PLATELET ESTIMATE NORMAL
[2020-08-30] MEDS: PANTOPRAZOLE SODIUM 40 MG/VIAL IV SCH ×2 (09:21→20:58)
[2020-08-30] MEDS ORDERED: DEXTROSE 50% WATER 50ML SYRINGE IV PRN (16:45)
[2020-08-30] MEDS ORDERED: HYDRALAZINE 20MG/ML VIAL IV PRN (16:45)
[2020-08-30] MEDS: DEXT 5%/0.45% NACL 1000ML 1,000 ML IV SCH (17:56)
[2020-08-30] MEDS ORDERED: VANCOMYCIN 1500MG in DEXTROSE 5% WATER 250ML IV NR (19:00)
[2020-08-30] MEDS: BLOOD SUGAR DIAGNOSTIC STRIP TEST SCH (20:58)
[2020-08-30] MEDS ORDERED: LACTULOSE 20G/30ML UDC PO PRN (21:00)
[2020-08-31] VITALS (61 sets, daily range): BP systolic 90–164; BP diastolic 54–100
[2020-08-31] MEDS: ALBUTEROL (0.083%) 2.5MG/3ML NEB HHN SCH ×6 (00:16→20:42)
[2020-08-31] MEDS: ACETYLCYSTEINE 100MG/ML 10% VIAL 4ML INH SCH ×5 (00:17→20:42)
[2020-08-31] MEDS: METHYLPREDNISOLONE SOD SUCC 40 MG/ML VIAL IV SCH ×2 (00:59→13:39)
[2020-08-31] MEDS: PIPERACILLIN/TAZOBACTAM 3.375 G in DEXT 5% WATER 100 ML IV SCH ×4 (03:34→21:49)
[2020-08-31] MEDS: BLOOD SUGAR DIAGNOSTIC STRIP TEST SCH ×4 (05:08→21:49)
[2020-08-31] MEDS: DEXT 5%/0.45% NACL 1000ML 1,000 ML IV SCH ×2 (05:08→21:30)
[2020-08-31 05:50] LABS: HEMATOCRIT. 29.3 % (36.0-48.0); HEMOGLOBIN. 9.3 g/dL (12.0-16.0); MEAN CORPUSCULAR HEMOGLOBIN 27.5 pg (28.0-32.0); PLATELET 285 x1000/uL (130-400)
[2020-08-31 05:57] LABS: CHLORIDE 107 mEq/L (98-107); PARTIAL THROMBOPLASTIN TIME 24.8 sec (23.4-31.0); PROTHROMBIN TIME 10.9 sec (9.6-11.0)
[2020-08-31] MEDS: VANCOMYCIN 1250MG in DEXTROSE 5% WATER 250ML IV SCH ×2 (06:16→23:00)
[2020-08-31 09:11] LABS: BG BASE EXCESS 1.9 mmol/L (-2.0-2.0); BG CARBOXYHEMOGLOBIN 0.2 % (0.5-1.5); BG DEOXYHEMOGLOBIN 1.1 % (0.0-5.0); BG FRACTION INSPIRED OXYGEN 35; BG HCO3 ACT 26.7 mmol/L (22.0-26.0); BG METHEMOGLOBIN 0.3 % (0.0-1.5); BG OXYGEN SATURATION 98.9 % (92.0-98.5); BG OXYHEMOGLOBIN 98.4 % (94.0-97.0); BG PCO2 42.9 mmHg (35.0-45.0); BG PH 7.412 (7.350-7.450); BG PO2 195.4 mmHg (75.0-100.0); BG SAMPLE SITE RIGHT RADIAL; BG TOTAL HEMOGLOBIN 9.2 g/dL (12.0-18.0); BG TOTAL RESPIRATORY RATE 14 b/min; BG VENT MODE VENT - AC
[2020-08-31] MEDS: PANTOPRAZOLE SODIUM 40 MG/VIAL IV SCH ×2 (10:10→20:46)
[2020-08-31] MEDS: FENTANYL CITRATE 2,500 MCG in SODIUM CHLORIDE 0.9% 200 ML IV PRN (10:12)
[2020-08-31] MEDS ORDERED: MIDAZOLAM HCL 5 MG/5 ML VIAL ONE (10:38)
[2020-08-31] MEDS ORDERED: FENTANYL CITRATE/PF 50MCG/ML 2ML VIAL ONE (10:38)
[2020-08-31] MEDS ORDERED: MIDAZOLAM HCL 2 MG/2 ML VIAL IV PRN (11:15)
[2020-08-31 15:33] LABS: BG CARBOXYHEMOGLOBIN 0.3 % (0.5-1.5); BG DEOXYHEMOGLOBIN 1.8 % (0.0-5.0); BG FRACTION INSPIRED OXYGEN 35; BG HCO3 ACT 27.7 mmol/L (22.0-26.0); BG METHEMOGLOBIN 0.2 % (0.0-1.5); BG OXYGEN SATURATION 98.2 % (92.0-98.5); BG OXYHEMOGLOBIN 97.7 % (94.0-97.0); BG PCO2 42.9 mmHg (35.0-45.0); BG PH 7.428 (7.350-7.450); BG PO2 116.1 mmHg (75.0-100.0); BG SAMPLE SITE RIGHT RADIAL; BG TOTAL HEMOGLOBIN 9.9 g/dL (12.0-18.0); BG VENT MODE VENT - AC
[2020-08-31 17:13] LABS: BG BASE EXCESS 2.5 mmol/L (-2.0-2.0); BG CARBOXYHEMOGLOBIN 0.3 % (0.5-1.5); BG DEOXYHEMOGLOBIN 2.9 % (0.0-5.0); BG FRACTION INSPIRED OXYGEN 35; BG HCO3 ACT 27.3 mmol/L (22.0-26.0); BG METHEMOGLOBIN 0.3 % (0.0-1.5); BG OXYGEN SATURATION 97.1 % (92.0-98.5); BG OXYHEMOGLOBIN 96.5 % (94.0-97.0); BG PCO2 43.1 mmHg (35.0-45.0); BG PO2 91.3 mmHg (75.0-100.0); BG SAMPLE SITE RIGHT RADIAL; BG TOTAL HEMOGLOBIN 11.4 g/dL (12.0-18.0); BG TOTAL RESPIRATORY RATE 8 b/min; BG VENT MODE VENT - CPAP
[2020-08-31 18:02] LABS: PLATELET ESTIMATE NORMAL
[2020-09-01] VITALS (30 sets, daily range): BP systolic 78–164; BP diastolic 58–116
[2020-09-01] MEDS: ACETYLCYSTEINE 100MG/ML 10% VIAL 4ML INH SCH ×3 (00:17→08:48)
[2020-09-01] MEDS: ALBUTEROL (0.083%) 2.5MG/3ML NEB HHN SCH ×3 (00:17→08:48)
[2020-09-01] MEDS: METHYLPREDNISOLONE SOD SUCC 40 MG/ML VIAL IV SCH (01:54)
[2020-09-01] MEDS: PIPERACILLIN/TAZOBACTAM 3.375 G in DEXT 5% WATER 100 ML IV SCH ×3 (03:54→15:41)
[2020-09-01 06:01] LABS: CHLORIDE 104 mEq/L (98-107)
[2020-09-01 06:13] LABS: VANCOMYCIN TROUGH 28.4 ug/mL (5.0-10.0)
[2020-09-01] MEDS: BLOOD SUGAR DIAGNOSTIC STRIP TEST SCH ×3 (06:30→16:43)
[2020-09-01] MEDS ORDERED: LIDOCAINE HCL/PF 1% 2ML VIAL ONE (07:05)
[2020-09-01 07:44] LABS: BG BASE EXCESS 2.7 mmol/L (-2.0-2.0); BG CARBOXYHEMOGLOBIN 0.3 % (0.5-1.5); BG DEOXYHEMOGLOBIN 6.2 % (0.0-5.0); BG FRACTION INSPIRED OXYGEN 21; BG HCO3 ACT 26.7 mmol/L (22.0-26.0); BG METHEMOGLOBIN 0.3 % (0.0-1.5); BG OXYGEN SATURATION 93.8 % (92.0-98.5); BG OXYHEMOGLOBIN 93.2 % (94.0-97.0); BG PCO2 38.8 mmHg (35.0-45.0); BG PH 7.456 (7.350-7.450); BG PO2 67.8 mmHg (75.0-100.0); BG SAMPLE SITE RIGHT RADIAL; BG VENT MODE ROOM AIR
[2020-09-01] MEDS: PANTOPRAZOLE SODIUM 40 MG/VIAL IV SCH (10:06)
[2020-09-01] MEDS: DEXT 5%/0.45% NACL 1000ML 1,000 ML IV SCH (10:07)
[2020-09-01] MEDS ORDERED: VANCOMYCIN 1,250 MG in DEXT 5% WATER 250 ML IV SCH (11:00)
[2020-09-01] MEDS ORDERED: LORAZEPAM 2MG/ML CPJ IV PRN (11:45)
[2020-09-01] MEDS ORDERED: ALBUTEROL 6.7GM HFA INHALER ORI SCH (11:45)
[2020-09-01] MEDS ORDERED: ALBUTEROL (0.083%) 2.5MG/3ML NEB HHN SCH (12:00)
[2020-09-01] MEDS ORDERED: GUAIFENESIN 600MG ER TABLET PO SCH (12:00)
[2020-09-01] MEDS ORDERED: ALBUTEROL (0.083%) 2.5MG/3ML NEB HHN PRN (12:00)
[2020-09-01] MEDS ORDERED: POTASSIUM CHLORIDE INJ 40 MEQ in DEXT 5% WATER 250 ML IV NR (12:30)
[2020-09-01] MEDS ORDERED: VANCOMYCIN 750 MG PREMIX 150 ML IV SCH (13:00)
[2020-09-02] MEDS ORDERED: METHYLPREDNISOLONE SOD SUCC 40 MG/ML VIAL IV SCH (09:00)
== END 2020-09-01 20:36 | disposition left against medical advice (07) | DRG 870 ==
LOC: ER 12:50 → MICUSO 15:36 → EDBEDREQ 15:57 → EDBEDREQSVC 15:57 → EDBEDREQTM 15:57 → EDBEDREQ 19:39 → ENRESERV 23:20 → MICUNO 08-28 23:30 → 5WST 09-01 14:35
PROVIDERS: ADMIT Internal Medicine; ATTEND Internal Medicine
PROC: 5A1955Z Respiratory Ventilation, Greater than 96 Consecutive Hours (ICD-10-PCS; 2020-08-27)
PROC: 0BH17EZ Insertion of Endotracheal Airway into Trachea, Via Natural or Artificial Opening (ICD-10-PCS; 2020-08-27)
PROC: 0DP6XUZ Removal of Feeding Device from Stomach, External Approach (ICD-10-PCS; principal; 2020-08-31)
PROC: 0DH64UZ Insertion of Feeding Device into Stomach, Percutaneous Endoscopic Approach (ICD-10-PCS; 2020-08-31)
PROC: 3E0G76Z Introduction of Nutritional Substance into Upper GI, Via Natural or Artificial Opening (ICD-10-PCS; 2020-08-31)
DX: A41.9 Sepsis, unspecified organism (principal); E43 Unspecified severe protein-calorie malnutrition; G93.41 Metabolic encephalopathy; J69.0 Pneumonitis due to inhalation of food and vomit; J96.02 Acute respiratory failure with hypercapnia; J96.01 Acute respiratory failure with hypoxia; E87.1 Hypo-osmolality and hyponatremia; J98.11 Atelectasis; K94.23 Gastrostomy malfunction; E87.8 Other disorders of electrolyte and fluid balance, not elsewhere classified; R13.10 Dysphagia, unspecified; C14.0 Malignant neoplasm of pharynx, unspecified; D64.9 Anemia, unspecified; E87.6 Hypokalemia; J45.909 Unspecified asthma, uncomplicated; Z85.819 Personal history of malignant neoplasm of unspecified site of lip, oral cavity, and pharynx; Z87.891 Personal history of nicotine dependence; Z91.040 Latex allergy status; Z68.24 Body mass index [BMI] 24.0-24.9, adult; Z53.29 Procedure and treatment not carried out because of patient's decision for other reasons; Z20.822 Contact with and (suspected) exposure to COVID-19
CPT/HCPCS: 36415; 36600; 70551; 71045; 80048; 80053; 80202; 80305; 81003; 82375; 82805; 82962; 83880; 84484; 85025; 87070; 87426; 93005; 94002; 94003; 94640; 99291; C9113; J2250; J2543; J2704; J2920; J3010; J3370; J3480; J3490; J7030; J7040; J7050; J7060; J7070; J7608; U0003; A4315

== ENCOUNTER 2020-12-04 05:43 | Inpatient (IN) | payer OTHER ==
[2020-12-04] VITALS (27 sets, daily range): BP systolic 107–167; BP diastolic 59–109
[~2020-12-04] VITALS: Ht 165.1 cm; Wt 70.3 kg
[2020-12-04] MEDS ORDERED: IPRATROPIUM BROMIDE (0.02%) 0.5MG/2.5ML NEB HHN STA (06:24)
[2020-12-04] MEDS ORDERED: ALBUTEROL (0.083%) 2.5MG/3ML NEB HHN SCH (06:30)
[2020-12-04] MEDS ORDERED: ALBUTEROL (0.083%) 2.5MG/3ML NEB HHN STA (06:43)
[2020-12-04] MEDS ORDERED: METHYLPREDNISOLONE SOD SUCC 125 MG/2 ML VIAL IV STA (06:43)
[2020-12-04 06:48] LABS: BG BASE EXCESS 7.5 mmol/L (-2.0-2.0); BG CARBOXYHEMOGLOBIN 0.3 % (0.5-1.5); BG DEOXYHEMOGLOBIN 11.6 % (0.0-5.0); BG METHEMOGLOBIN 0.7 % (0.0-1.5); BG OXYGEN SATURATION 88.3 % (92.0-98.5); BG OXYHEMOGLOBIN 87.4 % (94.0-97.0); BG PCO2 70.3 mmHg (35.0-45.0); BG PH 7.327 (7.350-7.450); BG PO2 57.3 mmHg (75.0-100.0); BG TOTAL HEMOGLOBIN 13.2 g/dL (12.0-18.0); BG VENT MODE NASAL CANNULA
[2020-12-04 08:44] LABS: HEMATOCRIT. 40.1 % (36.0-48.0); HEMOGLOBIN. 13.5 g/dL (12.0-16.0); MEAN CORPUSCULAR HEMOGLOBIN 28.6 pg (28.0-32.0); MEAN PLATELET VOLUME 9.3 fl (7.4-10.4); PLATELET 309 x1000/uL (130-400); RED BLOOD CELL COUNT 4.72 mill/uL (4.2-5.4); RED CELL DISTRIBUTION WIDTH 13.1 % (11.6-14.6)
[2020-12-04 08:52] LABS: CHLORIDE 99 mEq/L (98-107)
[2020-12-04 08:57] LABS: PROTHROMBIN TIME 11.2 sec (9.6-11.0)
[2020-12-04 09:01] LABS: CREATINE KINASE 155 IU/L (26-192)
[2020-12-04 09:22] LABS: FIBRINOGEN > 900 mg/dL (200-400)
[2020-12-04] MEDS ORDERED: PIPERACILLIN/TAZOBACTAM 3.375GM/50ML PREMIX IV ONE (09:30)
[2020-12-04] MEDS ORDERED: MORPHINE SULFATE 2 MG/ML CPJ (NOT FOR IM USE) IV ONE (09:45)
[2020-12-04] MEDS ORDERED: PIPERACILLIN/TAZ 3.375G PREMIX 50 ML IV NR (10:00)
[2020-12-04] MEDS ORDERED: VANCOMYCIN 1 G PREMIX 200 ML IV NR (10:00)
[2020-12-04 10:08] LABS: PLATELET ESTIMATE NORMAL
[2020-12-04] MEDS ORDERED: ONDANSETRON HCL 4MG/2ML INJ IV PRN (11:45)
[2020-12-04] MEDS ORDERED: ACETAMINOPHEN 325MG TABLET PO PRN (11:45)
[2020-12-04] MEDS: IPRATROPIUM/ALBUTEROL 0.5-3(2.5)MG/3ML NEB HHN SCH ×2 (13:02→21:02)
[2020-12-04] MEDS ORDERED: ALBUTEROL 6.7GM HFA INHALER ORI PRN (13:30)
[2020-12-04] MEDS: METHYLPREDNISOLONE SOD SUCC 40 MG/ML VIAL IV SCH ×2 (14:49→21:25)
[2020-12-04] MEDS: ENOXAPARIN 40MG/0.4ML SYR SUBCUT SCH (14:49)
[2020-12-04] MEDS ORDERED: PIPERACILLIN/TAZ 3.375G PREMIX 50 ML IV SCH (15:00)
[2020-12-04] MEDS: PIPERACILLIN/TAZOBACTAM 3.375G in DEXT 5% WATER 50ML IV SCH (16:44)
[2020-12-04] MEDS: FAMOTIDINE 20MG TABLET PO SCH (21:25)
[2020-12-05] VITALS (48 sets, daily range): BP systolic 98–150; BP diastolic 50–93
[2020-12-05] MEDS: IPRATROPIUM/ALBUTEROL 0.5-3(2.5)MG/3ML NEB HHN SCH ×6 (00:16→20:24)
[2020-12-05] MEDS: PIPERACILLIN/TAZOBACTAM 3.375G in DEXT 5% WATER 50ML IV SCH ×4 (00:27→17:50)
[2020-12-05] MEDS: MORPHINE SULFATE 2 MG/ML CPJ (NOT FOR IM USE) IV PRN ×2 (01:05→09:04)
[2020-12-05 04:27] LABS: HEMATOCRIT. 37.8 % (36.0-48.0); HEMOGLOBIN. 12.1 g/dL (12.0-16.0); MEAN CORPUSCULAR HEMOGLOBIN 27.3 pg (28.0-32.0); MEAN CORPUSCULAR VOLUME 85.5 fL (81.0-99.0); MEAN PLATELET VOLUME 9.5 fl (7.4-10.4); PLATELET 340 x1000/uL (130-400); RED BLOOD CELL COUNT 4.42 mill/uL (4.2-5.4); RED CELL DISTRIBUTION WIDTH 13.4 % (11.6-14.6)
[2020-12-05 04:36] LABS: CHLORIDE 104 mEq/L (98-107)
[2020-12-05] MEDS: METHYLPREDNISOLONE SOD SUCC 40 MG/ML VIAL IV SCH ×3 (06:49→22:21)
[2020-12-05] MEDS: FAMOTIDINE 20MG TABLET PO SCH ×2 (08:40→22:21)
[2020-12-05] MEDS: ENOXAPARIN 40MG/0.4ML SYR SUBCUT SCH (08:40)
[2020-12-05 09:30] LABS: PLATELET ESTIMATE NORMAL
[2020-12-05 10:06] LABS: BG BASE EXCESS 10.3 mmol/L (-2.0-2.0); BG CARBOXYHEMOGLOBIN 0.3 % (0.5-1.5); BG DEOXYHEMOGLOBIN 1.7 % (0.0-5.0); BG FRACTION INSPIRED OXYGEN 100; BG HCO3 ACT 38.9 mmol/L (22.0-26.0); BG METHEMOGLOBIN 0.1 % (0.0-1.5); BG OXYGEN SATURATION 98.3 % (92.0-98.5); BG OXYHEMOGLOBIN 97.9 % (94.0-97.0); BG PCO2 73.9 mmHg (35.0-45.0); BG PH 7.339 (7.350-7.450); BG PO2 119.2 mmHg (75.0-100.0); BG SAMPLE SITE RIGHT RADIAL; BG TOTAL HEMOGLOBIN 12.5 g/dL (12.0-18.0); BG VENT MODE MASK - BIPAP
[2020-12-05] MEDS ORDERED: ALBUTEROL (0.083%) 2.5MG/3ML NEB HHN PRN (18:00)
[2020-12-05] MEDS ORDERED: LEVO25CA4 (20:21)
[2020-12-06] VITALS (12 sets, daily range): BP systolic 102–133; BP diastolic 28–89
[2020-12-06] MEDS: IPRATROPIUM/ALBUTEROL 0.5-3(2.5)MG/3ML NEB HHN SCH ×6 (00:18→20:24)
[2020-12-06] MEDS: PIPERACILLIN/TAZOBACTAM 3.375G in DEXT 5% WATER 50ML IV SCH ×5 (00:59→23:09)
[2020-12-06 06:37] LABS: HEMATOCRIT. 36.7 % (36.0-48.0); HEMOGLOBIN. 11.7 g/dL (12.0-16.0); MEAN CORPUSCULAR HEMOGLOBIN 27.1 pg (28.0-32.0); MEAN CORPUSCULAR VOLUME 85.2 fL (81.0-99.0); MEAN PLATELET VOLUME 9.8 fl (7.4-10.4); PLATELET 291 x1000/uL (130-400); RED CELL DISTRIBUTION WIDTH 13.2 % (11.6-14.6)
[2020-12-06] MEDS: METHYLPREDNISOLONE SOD SUCC 40 MG/ML VIAL IV SCH ×2 (06:45→14:37)
[2020-12-06] MEDS: LEVOTHYROXINE SODIUM 25MCG TABLET PO SCH (06:45)
[2020-12-06 07:05] LABS: CHLORIDE 100 mEq/L (98-107)
[2020-12-06 08:50] LABS: BG CARBOXYHEMOGLOBIN 0.3 % (0.5-1.5); BG DEOXYHEMOGLOBIN 0.8 % (0.0-5.0); BG FRACTION INSPIRED OXYGEN 100; BG HCO3 ACT 37.4 mmol/L (22.0-26.0); BG METHEMOGLOBIN 1.1 % (0.0-1.5); BG OXYGEN SATURATION 99.2 % (92.0-98.5); BG OXYHEMOGLOBIN 97.8 % (94.0-97.0); BG PH 7.384 (7.350-7.450); BG PO2 281.6 mmHg (75.0-100.0); BG SAMPLE SITE RIGHT RADIAL; BG TOTAL HEMOGLOBIN 12.8 g/dL (12.0-18.0); BG VENT MODE MASK - BIPAP
[2020-12-06] MEDS: FAMOTIDINE 20MG TABLET PO SCH ×2 (09:24→21:16)
[2020-12-06] MEDS: ENOXAPARIN 40MG/0.4ML SYR SUBCUT SCH (09:24)
[2020-12-06 11:52] LABS: PLATELET ESTIMATE NORMAL
[2020-12-06] MEDS: MORPHINE SULFATE 2 MG/ML CPJ (NOT FOR IM USE) IV PRN ×2 (15:00→23:23)
[2020-12-06] MEDS ORDERED: LORAZEPAM 2MG/ML CPJ IV PRN (18:00)
[2020-12-06] MEDS ORDERED: HYDRALAZINE 20MG/ML VIAL IV PRN (18:00)
[2020-12-06] MEDS ORDERED: LACTULOSE 20G/30ML UDC PO PRN (18:00)
[2020-12-07] VITALS (12 sets, daily range): BP systolic 108–137; BP diastolic 55–87
[2020-12-07] MEDS: IPRATROPIUM/ALBUTEROL 0.5-3(2.5)MG/3ML NEB HHN SCH ×6 (00:26→20:22)
[2020-12-07] MEDS: METHYLPREDNISOLONE SOD SUCC 40 MG/ML VIAL IV SCH ×2 (04:10→13:42)
[2020-12-07] MEDS: PIPERACILLIN/TAZOBACTAM 3.375G in DEXT 5% WATER 50ML IV SCH ×4 (06:28→23:15)
[2020-12-07 06:54] LABS: HEMATOCRIT. 35.4 % (36.0-48.0); HEMOGLOBIN. 11.2 g/dL (12.0-16.0); MEAN CORPUSCULAR HEMOGLOBIN 26.9 pg (28.0-32.0); MEAN CORPUSCULAR VOLUME 84.6 fL (81.0-99.0); MEAN PLATELET VOLUME 9.2 fl (7.4-10.4); PLATELET 274 x1000/uL (130-400); RED BLOOD CELL COUNT 4.19 mill/uL (4.2-5.4)
[2020-12-07 06:56] LABS: CHLORIDE 100 mEq/L (98-107)
[2020-12-07] MEDS: LEVOTHYROXINE SODIUM 25MCG TABLET PO SCH (08:15)
[2020-12-07] MEDS: FAMOTIDINE 20MG TABLET PO SCH ×2 (08:15→23:15)
[2020-12-07] MEDS: ENOXAPARIN 40MG/0.4ML SYR SUBCUT SCH (08:16)
[2020-12-07] MEDS: MORPHINE SULFATE 2 MG/ML CPJ (NOT FOR IM USE) IV PRN ×4 (08:17→23:17)
[2020-12-07 09:22] LABS: CLARITY URINE CLEAR (CLEAR); COLOR URINE YELLOW (YELLOW); KETONES URINE TRACE (NEGATIVE); LEUKOCYTE ESTERASE URINE NEGATIVE (NEGATIVE); NITRITE URINE NEGATIVE (NEGATIVE); OCCULT BLOOD URINE NEGATIVE (NEGATIVE); PROTEIN URINE TRACE (NEGATIVE); SPECIFIC GRAVITY URINE 1.034 (1.005-1.030); UROBILINOGEN URINE 0.2 E.U./dL (0.2-1.0)
[2020-12-07 12:17] LABS: BG BASE EXCESS 13.9 mmol/L (-2.0-2.0); BG CARBOXYHEMOGLOBIN 0.3 % (0.5-1.5); BG DEOXYHEMOGLOBIN 7.7 % (0.0-5.0); BG FRACTION INSPIRED OXYGEN 21; BG HCO3 ACT 40.1 mmol/L (22.0-26.0); BG METHEMOGLOBIN 0.3 % (0.0-1.5); BG OXYGEN SATURATION 92.3 % (92.0-98.5); BG OXYHEMOGLOBIN 91.7 % (94.0-97.0); BG PCO2 57.9 mmHg (35.0-45.0); BG PH 7.458 (7.350-7.450); BG SAMPLE SITE RIGHT RADIAL; BG TOTAL HEMOGLOBIN 11.8 g/dL (12.0-18.0); BG VENT MODE ROOM AIR
[2020-12-07 19:27] LABS: PLATELET ESTIMATE NORMAL
[2020-12-08] VITALS (12 sets, daily range): BP systolic 110–128; BP diastolic 53–83
[2020-12-08] MEDS: IPRATROPIUM/ALBUTEROL 0.5-3(2.5)MG/3ML NEB HHN SCH ×6 (00:38→21:12)
[2020-12-08] MEDS: ACETYLCYSTEINE 100MG/ML 10% VIAL 4ML INH SCH ×3 (00:39→16:01)
[2020-12-08] MEDS: METHYLPREDNISOLONE SOD SUCC 40 MG/ML VIAL IV SCH (01:00)
[2020-12-08] MEDS: MORPHINE SULFATE 2 MG/ML CPJ (NOT FOR IM USE) IV PRN ×5 (05:03→20:52)
[2020-12-08] MEDS: PIPERACILLIN/TAZOBACTAM 3.375G in DEXT 5% WATER 50ML IV SCH ×4 (05:03→23:00)
[2020-12-08 06:08] LABS: CHLORIDE 100 mEq/L (98-107)
[2020-12-08 06:31] LABS: HEMATOCRIT. 34.4 % (36.0-48.0); MEAN CORPUSCULAR HEMOGLOBIN 26.6 pg (28.0-32.0); MEAN CORPUSCULAR VOLUME 83.3 fL (81.0-99.0); MEAN PLATELET VOLUME 9.3 fl (7.4-10.4); PLATELET 283 x1000/uL (130-400); RED BLOOD CELL COUNT 4.13 mill/uL (4.2-5.4); RED CELL DISTRIBUTION WIDTH 13.3 % (11.6-14.6)
[2020-12-08] MEDS: ENOXAPARIN 40MG/0.4ML SYR SUBCUT SCH (08:20)
[2020-12-08] MEDS: LEVOTHYROXINE SODIUM 25MCG TABLET PO SCH (08:21)
[2020-12-08] MEDS: FAMOTIDINE 20MG TABLET PO SCH ×2 (08:21→20:52)
[2020-12-08 09:30] LABS: PLATELET ESTIMATE NORMAL
[2020-12-08] MEDS: BUDESONIDE 0.5MG/2ML NEB HHN SCH (21:12)
[2020-12-09] VITALS (11 sets, daily range): BP systolic 113–137; BP diastolic 63–95
[2020-12-09] MEDS: ACETYLCYSTEINE 100MG/ML 10% VIAL 4ML INH SCH ×3 (01:03→14:40)
[2020-12-09] MEDS: IPRATROPIUM/ALBUTEROL 0.5-3(2.5)MG/3ML NEB HHN SCH ×5 (01:03→17:22)
[2020-12-09] MEDS: MORPHINE SULFATE 2 MG/ML CPJ (NOT FOR IM USE) IV PRN ×4 (01:20→14:01)
[2020-12-09] MEDS: PIPERACILLIN/TAZOBACTAM 3.375G in DEXT 5% WATER 50ML IV SCH ×2 (05:18→12:49)
[2020-12-09 05:48] LABS: CHLORIDE 102 mEq/L (98-107)
[2020-12-09 06:52] LABS: HEMATOCRIT. 33.9 % (36.0-48.0); HEMOGLOBIN. 11.1 g/dL (12.0-16.0); MEAN CORPUSCULAR HEMOGLOBIN 27.4 pg (28.0-32.0); MEAN CORPUSCULAR VOLUME 83.8 fL (81.0-99.0); MEAN PLATELET VOLUME 9.4 fl (7.4-10.4); PLATELET 264 x1000/uL (130-400); RED BLOOD CELL COUNT 4.05 mill/uL (4.2-5.4); RED CELL DISTRIBUTION WIDTH 13.4 % (11.6-14.6)
[2020-12-09] MEDS: LEVOTHYROXINE SODIUM 25MCG TABLET PO SCH (08:12)
[2020-12-09] MEDS: ENOXAPARIN 40MG/0.4ML SYR SUBCUT SCH (08:12)
[2020-12-09] MEDS: FAMOTIDINE 20MG TABLET PO SCH (08:12)
[2020-12-09] MEDS ORDERED: METHYLPREDNISOLONE SOD SUCC 40 MG/ML VIAL IV SCH (09:00)
[2020-12-09] MEDS: BUDESONIDE 0.5MG/2ML NEB HHN SCH (09:30)
[2020-12-09] MEDS ORDERED: FAMO-135 PO (12:58)
[2020-12-09] MEDS ORDERED: AMOX-424 MT (12:58)
[2020-12-09] MEDS ORDERED: FLUT1AER INH (12:58)
[2020-12-09] MEDS ORDERED: P20 PO (12:58)
[2020-12-09] MEDS ORDERED: ALBU90AE INH (12:58)
[2020-12-09 13:53] LABS: PLATELET ESTIMATE NORMAL
[2020-12-09] MEDS ORDERED: NALOXONE HCL 0.4MG/ML VIAL IV PRN (17:30)
== END 2020-12-09 20:26 | disposition home or self-care (01) | DRG 193 ==
LOC: ER 05:43 → EDBEDREQ 11:09 → EDBEDREQSVC 11:09 → EDBEDREQTM 11:09 → ENRESERV 11:26 → CANRESERV 11:26 → EDBEDREQSVC 11:52 → EDBEDREQ 11:54 → ENRESERV 12:18 → MICUSO 13:12 → 5EST 12-05 17:10
PROVIDERS: ADMIT Internal Medicine; ATTEND Internal Medicine
PROC: 5A09457 Assistance with Respiratory Ventilation, 24-96 Consecutive Hours, Continuous Positive Airway Pressure (ICD-10-PCS; principal; 2020-12-04)
PROC: 5A09357 Assistance with Respiratory Ventilation, Less than 24 Consecutive Hours, Continuous Positive Airway Pressure (ICD-10-PCS; 2020-12-07)
PROC: 5A09357 Assistance with Respiratory Ventilation, Less than 24 Consecutive Hours, Continuous Positive Airway Pressure (ICD-10-PCS; 2020-12-09)
DX: J18.9 Pneumonia, unspecified organism (principal); J96.02 Acute respiratory failure with hypercapnia; J44.1 Chronic obstructive pulmonary disease with (acute) exacerbation; J45.901 Unspecified asthma with (acute) exacerbation; E44.0 Moderate protein-calorie malnutrition; J44.0 Chronic obstructive pulmonary disease with (acute) lower respiratory infection; R13.10 Dysphagia, unspecified; D64.9 Anemia, unspecified; R74.01 Elevation of levels of liver transaminase levels; Z20.822 Contact with and (suspected) exposure to COVID-19; E87.5 Hyperkalemia; C14.0 Malignant neoplasm of pharynx, unspecified; Z79.899 Other long term (current) drug therapy; Z79.51 Long term (current) use of inhaled steroids; Z92.21 Personal history of antineoplastic chemotherapy; Z92.3 Personal history of irradiation; Z91.040 Latex allergy status; Z88.8 Allergy status to other drugs, medicaments and biological substances; Z91.011 Allergy to milk products; Z91.048 Other nonmedicinal substance allergy status; Z82.49 Family history of ischemic heart disease and other diseases of the circulatory system; Z83.6 Family history of other diseases of the respiratory system; Z87.891 Personal history of nicotine dependence; Z93.1 Gastrostomy status; Z68.25 Body mass index [BMI] 25.0-25.9, adult
CPT/HCPCS: 36415; 36600; 71045; 80048; 80053; 80076; 81003; 82375; 82550; 82728; 82805; 83605; 83615; 83880; 84145; 84484; 85025; 85384; 93005; 94640; 94660; 97162; 97164; 97535; 99291; J1650; J2270; J2543; J2920; J2930; J7040; J7060; J7608; J7626; U0003; U0005